=== PATIENT | male | born 1960 | race Caucasian/White ===

== ENCOUNTER 2020-08-07 15:15 | Emergency (ER) | payer OTHER ==
[2020-08-07 15:23] VITALS: BP 147/83; PULSE 88; RESP 20; TEMP 97.7
[2020-08-07] MEDS ORDERED: PROPARACAINE 0.5% OPHTH DROPS 15 ML BTL LEFT EYE STA (15:25)
[2020-08-07] MEDS ORDERED: FLUORESCEIN STRIPS 1 MG STRIP LEFT EYE ONE (15:25)
--- NOTE | 2020-08-07 16:00 | ED ---
Eye Problem HPI - General Chief complaint: Eye Problems Stated complaint: L eye injury Time Seen by Provider: 08/07/20 15:25 Source: patient Mode of arrival: ambulatory Limitations: no limitations - History of Present Illness Initial comments: Patient is a 60-year-old male presenting to emergency Department with complaints of a foreign body in his left eye. Patient states about an hour prior to arrival he was working under a car when some rest started falling off of it and he believes there is a few small specks in his left eye. He was wearing his prescription safety goggles at the time. He admits to some very mild blurry vision a left eye secondary to the eye watering. He has no further complaints at this time. - Related Data Previous Rx's Medication Instructions Recorded Erythromycin Ophth Oint [Romycin 1 applic LEFT EYE QID 5 Days #1 08/07/20 Ophth Oint] tube Allergies Allergy/AdvReac Type Severity Reaction Status Date / Time No Known Allergies Allergy Verified 08/07/20 15:23 Review of Systems ROS Statement: Those systems with pertinent positive or pertinent negative responses have been documented in the HPI. ROS Other: All systems not noted in ROS Statement are negative. Past Medical History Past Medical History: No Reported History History of Any Multi-Drug Resistant Organisms: None Reported Past Surgical History: No Surgical Hx Reported Past Psychological History: No Psychological Hx Reported Smoking Status: Never smoker Past Alcohol Use History: Rare Past Drug Use History: None Reported General Exam - General Exam Comments Initial Comments: GENERAL: Patient is well-developed and well-nourished. Patient is nontoxic and in no acute distress. HEAD: Atraumatic, normocephalic. EYES: Pupils equal round and reactive to light, extraocular movements intact, sclera anicteric. Eyelids were unremarkable. Left conjunctiva is slightly injected, there appears to be 2 very small specks of a foreign body on his eye, he is worried easily removed with a Q-tip. Fluorescein stain reveals 2 very small round abrasions where the specks used to be. Visual acuity bilaterally is 20/20, right eye is 20/25, left eye is 20/40. ENT: Nares patent, oropharynx clear without exudates. Moist mucous membranes. NECK: Normal range of motion, supple without lymphadenopathy or JVD. LUNGS: Unlabored respirations. Breath sounds clear to auscultation bilaterally and equal. No wheezes rales or rhonchi. HEART: Regular rate and rhythm without murmurs, rubs or gallops. ABDOMEN: Soft, nontender, normoactive bowel sounds. : Deferred MUSCULOSKELETAL: Normal extremities with adequate strength and normal range of motion, no pitting or edema. No clubbing or cyanosis. NEUROLOGICAL: Patient is alert and oriented x 3. Symmetrical smile. Normal speech, normal gait. PSYCH: Normal mood, normal affect. SKIN: Warm, Dry, normal turgor, no rashes or lesions noted. Limitations: no limitations Course Vital Signs 08/07/20 15:19 Temperature 97.7 F Pulse Rate 88 Respiratory 20 Rate Blood Pressure 147/83 O2 Sat by Pulse 97 Oximetry Procedures - Forgein Body Removal Eye Site: Left Anesthetic Used: Proparacaine Eye Exam Technique: Malagon Lamp, Fluorescein Foreign Body Suspected: Metal Forgein Body Removal Technique: Cotton Swab Remaining Debris: No Patient Tolerated: well Medical Decision Making - Medical Decision Making Patient is a 60-year-old male here for 2 small foreign bodies of the left eye, these were removed without incident. Fluorescein stain does reveal 2 very small round abrasions where these foreign objects were at. Patient be started on erythromycin ointment, follow-up with ophthalmology. Patient is stable for discharge. Patient is in agreement with this plan of care. Return parameters were discussed with the patient and they verbalized understanding. Case discussed with Dr. Ellis. Disposition Clinical Impression: Foreign body of left eye Disposition: HOME SELF-CARE Condition: Stable Instructions (If sedation given, give patient instructions): Eye Foreign Body (ED) Additional Instructions: Please return to the Emergency Department if symptoms worsen or any other concerns. Use antibiotic ointment as prescribed. Follow-up with ophthalmology. Prescriptions: Erythromycin Ophth Oint [Romycin Ophth Oint] 1 applic LEFT EYE QID 5 Days #1 tube Is patient prescribed a controlled substance at d/c from ED?: No Referrals: None,Stated [Primary Care Provider] - 1-2 days Elvira Walker MD [STAFF PHYSICIAN] - 1-2 days Time of Disposition: 16:00
== END 2020-08-07 16:18 | disposition home or self-care (01) ==
LOC: EC 15:15
DX: T15.92XA Foreign body on external eye, part unspecified, left eye, initial encounter (principal)
CPT/HCPCS: 65205; 99283